=== PATIENT | female | born 1930 | race Caucasian/White ===

== ENCOUNTER 2017-08-22 18:38 | Inpatient (IN) | payer OTHER ==
[~2017-08-22] VITALS: Ht 154.9 cm; Wt 53.0 kg
[~2017-08-22 18:38] MED LIST: BIAXIN500 MG PO; NEURONTIN300 MG PO; PERCOCET 5/31 TABLET PO; ZOFRAN4 MG PO; ZYRTEC10 M3 PO
[2017-08-22 19:14] LABS: ADD MIUA? YES; BILIRUBIN NEGATIVE; BLOOD LARGE; COLOR YELLOW ((YELLOW)); GLUCOSE (STRIP) NEGATIVE; KETONES 5; LEUKOCYTES LARGE; NITRITE POSITIVE; PROTEIN (STRIP) 30; SPECIFIC GRAVITY 1.012 (1.000-1.030); UROBILINOGEN 0.2 MG/DL (0.2-1.0)
[2017-08-22 19:20] LABS: HEMATOCRIT 37.8 % (36.0-46.0); MCH 29.9 PG (29.0-34.0); MCHC 35.2 G/DL (30.0-36.0); MCV 84.9 FL (83-99); MEAN PLAT.VOLUME 8.6 uM^3 (9.5-12.4); PLATELET COUNT 511 K/uL (156-360); RBC DIS.WIDTH-CV 13.2 % (11.8-14.6); RBC DIS.WIDTH-SD 41.4 % (39-53); RED BLOOD COUNT 4.45 M/uL (3.80-5.20)
[2017-08-22 19:31] LABS: CHLORIDE 94 mEq/L (99-109); POTASSIUM 3.6 mEq/L (3.7-5.4); SODIUM 126 mEq/L (136-147)
[2017-08-22 19:32] LABS: GLUCOSE 123 mg/dL (70-99)
[2017-08-22 19:34] LABS: ANION GAP 10 MEQ/L (2-14)
[2017-08-22 19:36] LABS: GFR ESTIMATE (CALCULATED) > 59 mL/min/
[2017-08-22 19:37] LABS: UREA NITROGEN (BUN) 7 mg/dL (9-23)
[2017-08-22 19:40] LABS: BACTERIA RARE /HPF; EPITHELIAL CELLS RARE /HPF; HYALINE CASTS 0-5 /LPF; MUCUS TRACE /LPF; RED BLOOD CELLS TNTC /HPF (0-5); UCUL ADDED? YES; WHITE BLOOD CELLS TNTC /HPF (0-5)
[2017-08-22] MEDS ORDERED: PROMETHAZINE HC25 M1 PO (22:37)
[2017-08-22] MEDS ORDERED: ZYRTEC10 M2 PO (22:37)
[2017-08-22] MEDS ORDERED: DITROPAN XL5 MG PO (22:38)
[2017-08-22] MEDS ORDERED: MYSOLINE50 MG PO (22:38)
[2017-08-22] MEDS ORDERED: XANAX0.5 MG PO (22:38)
[2017-08-22] MEDS ORDERED: RESTORIL7.5 MG PO (22:39)
[2017-08-22] MEDS ORDERED: ASPIR 8181 M1 PO (22:40)
[2017-08-22] MEDS ORDERED: VITAMIN D32000 UNI1 PO (22:40)
[2017-08-22] MEDS ORDERED: PRILOSEC10 MG PO (22:40)
[2017-08-22] MEDS ORDERED: NORCO 5/3251 TABLET PO (22:40)
[2017-08-23] VITALS (7 sets, daily range): BP systolic 144–171; BP diastolic 74–85
[2017-08-23] MEDS ORDERED: TEMAZEPAM30 MG PO (01:16)
[2017-08-23] MEDS ORDERED: ALPRAZOLAM0.25 M2 PO (01:17)
[2017-08-23] MEDS ORDERED: OMEPRAZOLE40 M1 PO (01:19)
[2017-08-23] MEDS ORDERED: DITROPAN5 MG PO (01:20)
[2017-08-23] MEDS ORDERED: PRIMIDONE50 MG PO (01:21)
[2017-08-23 08:41] LABS: HEMATOCRIT 37.9 % (36.0-46.0); MCH 29.9 PG (29.0-34.0); MCHC 34.6 G/DL (30.0-36.0); MCV 86.5 FL (83-99); MEAN PLAT.VOLUME 8.7 uM^3 (9.5-12.4); PLATELET COUNT 475 K/uL (156-360); RBC DIS.WIDTH-CV 13.6 % (11.8-14.6); RBC DIS.WIDTH-SD 43.1 % (39-53); RED BLOOD COUNT 4.38 M/uL (3.80-5.20); WHITE BLOOD COUNT 8.4 K/uL (4.1-10.2)
[2017-08-23 09:02] LABS: ANION GAP 9 MEQ/L (2-14); CHLORIDE 96 MEQ/L (99-109); GFR ESTIMATE (CALCULATED) > 59 mL/min/; GLUCOSE 100 mg/dL (70-99); POTASSIUM 3.6 MEQ/L (3.7-5.4); SAMPLE HEMOLYSIS CHECK 0; SAMPLE ICTERIC CHECK 0; SAMPLE LIPEMIA CHECK 0; SODIUM 132 MEQ/L (136-147); UREA NITROGEN (BUN) 5 mg/dL (9-23)
[2017-08-24 02:56] VITALS: BP 141/79
[2017-08-24 07:49] LABS: HEMATOCRIT 35.3 % (36.0-46.0); MCH 29.4 PG (29.0-34.0); MCV 86.5 FL (83-99); MEAN PLAT.VOLUME 8.8 uM^3 (9.5-12.4); PLATELET COUNT 427 K/uL (156-360); RBC DIS.WIDTH-CV 13.6 % (11.8-14.6); RBC DIS.WIDTH-SD 42.9 % (39-53); RED BLOOD COUNT 4.08 M/uL (3.80-5.20); WHITE BLOOD COUNT 5.9 K/uL (4.1-10.2)
[2017-08-24 08:11] LABS: ANION GAP 7 MEQ/L (2-14); CHLORIDE 100 MEQ/L (99-109); GFR ESTIMATE (CALCULATED) > 59 mL/min/; GLUCOSE 88 mg/dL (70-99); POTASSIUM 3.4 MEQ/L (3.7-5.4); SAMPLE HEMOLYSIS CHECK 0; SAMPLE ICTERIC CHECK 0; SAMPLE LIPEMIA CHECK 0; SODIUM 134 MEQ/L (136-147); UREA NITROGEN (BUN) 6 mg/dL (9-23)
[2017-08-24 08:15] VITALS: BP 120/62
[2017-08-24 11:36] VITALS: BP 146/70
[2017-08-24 16:13] VITALS: BP 132/85
[2017-08-24 20:26] VITALS: BP 187/80
[2017-08-24 23:40] VITALS: BP 168/72
[2017-08-25 04:04] VITALS: BP 162/73
[2017-08-25 07:39] VITALS: BP 168/79
[2017-08-25 08:41] VITALS: BP 166/80
[2017-08-25] MEDS ORDERED: LISINOPRIL2.5 MG PO (11:10)
== END 2017-08-25 12:02 | disposition home or self-care (01) | DRG 690 ==
LOC: EME 18:38 → 2EASTP 22:31 → EDOF 22:31 → ENRESERV 22:34 → CANRESERV 22:34 → ENRESERV 23:02 → 2EASTP 08-23 01:49
PROVIDERS: Family Medicine
DX: N39.0 Urinary tract infection, site not specified (principal); E78.5 Hyperlipidemia, unspecified; B96.5 Pseudomonas (aeruginosa) (mallei) (pseudomallei) as the cause of diseases classified elsewhere; E87.1 Hypo-osmolality and hyponatremia; E87.8 Other disorders of electrolyte and fluid balance, not elsewhere classified; F41.9 Anxiety disorder, unspecified; G25.0 Essential tremor; G47.00 Insomnia, unspecified; I10 Essential (primary) hypertension; J30.2 Other seasonal allergic rhinitis; K21.9 Gastro-esophageal reflux disease without esophagitis; M16.11 Unilateral primary osteoarthritis, right hip; Z96.652 Presence of left artificial knee joint; R31.9 Hematuria, unspecified; N39.3 Stress incontinence (female) (male)
CPT/HCPCS: 70450; 80048; 81003; 83605; 85027; 87040; 87077; 87086; 87186; 99281; 99285; J0696; J1650; J3480; J7030; J7050

== ENCOUNTER 2017-09-05 11:21 | Emergency (ER) | payer OTHER ==
[~2017-09-05] VITALS: Ht 154.9 cm; Wt 45.8 kg
[~2017-09-05 11:21] MED LIST changes: +ALPRAZOLAM0.25 M2 PO; +ASPIR 8181 M1 PO; +DITROPAN XL5 MG PO; +DITROPAN5 MG PO; +LISINOPRIL2.5 MG PO; +MYSOLINE50 MG PO; +NORCO 5/3251 TABLET PO; +OMEPRAZOLE40 M1 PO; +PRILOSEC10 MG PO; +PRIMIDONE50 MG PO; +PROMETHAZINE HC25 M1 PO; +RESTORIL7.5 MG PO; +TEMAZEPAM30 MG PO; +VITAMIN D32000 UNI1 PO; +XANAX0.5 MG PO; +ZYRTEC10 M2 PO
[2017-09-05 12:13] LABS: HEMATOCRIT 39.1 % (36.0-46.0); MCHC 34.3 G/DL (30.0-36.0); MCV 87.7 FL (83-99); MEAN PLAT.VOLUME 9.3 uM^3 (9.5-12.4); PLATELET COUNT 417 K/uL (156-360); RBC DIS.WIDTH-SD 45.6 % (39-53); RED BLOOD COUNT 4.46 M/uL (3.80-5.20); WHITE BLOOD COUNT 4.8 K/uL (4.1-10.2)
[2017-09-05 12:24] LABS: CHLORIDE 98 mEq/L (99-109); POTASSIUM 4.2 mEq/L (3.7-5.4); SODIUM 130 mEq/L (136-147)
[2017-09-05 12:25] LABS: GLUCOSE 105 mg/dL (70-99)
[2017-09-05 12:27] LABS: ANION GAP 6 MEQ/L (2-14)
[2017-09-05 12:29] LABS: GFR ESTIMATE (CALCULATED) > 59 mL/min/
[2017-09-05 12:30] LABS: UREA NITROGEN (BUN) 8 mg/dL (9-23)
[2017-09-05 14:12] LABS: ADD MIUA? YES; BILIRUBIN NEGATIVE; BLOOD MODERATE; COLOR YELLOW ((YELLOW)); GLUCOSE (STRIP) NEGATIVE; KETONES NEGATIVE; LEUKOCYTES NEGATIVE; NITRITE NEGATIVE; PROTEIN (STRIP) NEGATIVE; SPECIFIC GRAVITY 1.009 (1.000-1.030); UROBILINOGEN 0.2 MG/DL (0.2-1.0)
[2017-09-05 14:26] LABS: BACTERIA NONE SEEN /HPF; EPITHELIAL CELLS RARE /HPF; MUCUS TRACE /LPF; UCUL ADDED? NO; WHITE BLOOD CELLS 0-5 /HPF (0-5)
[2017-09-05 16:08] VITALS: BP 188/103
== END 2017-09-05 16:10 | disposition home or self-care (01) ==
LOC: EME 11:21
DX: S06.0X0A Concussion without loss of consciousness, initial encounter (principal); R42 Dizziness and giddiness; I10 Essential (primary) hypertension; W19.XXXA Unspecified fall, initial encounter; E78.5 Hyperlipidemia, unspecified; F41.9 Anxiety disorder, unspecified; Z96.652 Presence of left artificial knee joint; Z87.440 Personal history of urinary (tract) infections
CPT/HCPCS: 70450; 71020; 80048; 81003; 85027; 93005; 99281; 99283

== ENCOUNTER 2017-12-08 11:40 | Emergency (ER) | payer OTHER ==
[~2017-12-08] VITALS: Ht 154.9 cm; Wt 44.9 kg
[2017-12-08 12:26] LABS: BASOPHIL (%) 0.7 % (0-1); BASOPHIL COUNT 0.1 K/uL (0-0.1); EOSINOPHIL (%) 0.4 % (0-5); EOSINOPHIL COUNT 0.1 K/uL (0-0.3); HEMATOCRIT 42.6 % (36.0-46.0); HEMOGLOBIN 14.9 G/DL (11.9-15.5); IMMATURE GRANULOCYTE (%) 0.5 % (0.0-0.7); LYMPHOCYTE (%) 9.7 % (15-42); LYMPHOCYTE COUNT 1.4 K/uL (1.0-2.8); MCH 29.5 PG (29.0-34.0); MCV 84.4 FL (83-99); MONOCYTE (%) 7.2 % (3-12); NEUTROPHIL (%) 81.5 % (45-76); NEUTROPHIL COUNT 11.5 K/uL (1.8-6.4); PLATELET COUNT 381 K/uL (156-360); RBC DIS.WIDTH-CV 13.2 % (11.8-14.6); RBC DIS.WIDTH-SD 40.9 % (39-53); RED BLOOD COUNT 5.05 M/uL (3.80-5.20); WHITE BLOOD COUNT 14.1 K/uL (4.1-10.2)
[2017-12-08 12:36] LABS: CHLORIDE 96 mEq/L (99-109); SODIUM 130 mEq/L (136-147)
[2017-12-08 12:38] LABS: GLUCOSE 89 mg/dL (70-99)
[2017-12-08 12:41] LABS: CREATININE 0.6 mg/dL (0.6-1.3); GFR ESTIMATE (CALCULATED) > 59 mL/min/
[2017-12-08 12:42] LABS: UREA NITROGEN (BUN) 9 mg/dL (9-23)
[2017-12-08 12:45] LABS: TROP-I INTERPRETATION NEGATIVE; TROPONIN-I < 0.01 ng/mL (0.0-0.30)
[2017-12-08 12:49] LABS: CK-MB 4.1 ng/mL (0.0-4.9)
[2017-12-08 14:10] LABS: APPEARANCE CLEAR ((CLEAR)); BILIRUBIN NEGATIVE; BLOOD MODERATE; COLOR STRAW ((YELLOW)); GLUCOSE (STRIP) NEGATIVE; KETONES 5; LEUKOCYTES NEGATIVE; NITRITE NEGATIVE; PROTEIN (STRIP) NEGATIVE; SPECIFIC GRAVITY 1.008 (1.000-1.030); UROBILINOGEN 0.2 MG/DL (0.2-1.0)
[2017-12-08 14:22] LABS: BACTERIA RARE /HPF; EPITHELIAL CELLS NONE SEEN /HPF; MUCUS TRACE /LPF; UCUL ADDED? NO; WHITE BLOOD CELLS 0-5 /HPF (0-5)
[2017-12-08 14:34] LABS: CKMB RELATIVE INDEX 2.5 (0.0-3.9); CREATINE KINASE 163 IU/L (1-294); TOTAL CK 163 IU/L (1-294)
[2017-12-08 14:55] VITALS: BP 130/76
== END 2017-12-08 15:18 | disposition home or self-care (01) ==
LOC: EME 11:40
PROVIDERS: Emergency Medicine
DX: T14.8XXA Other injury of unspecified body region, initial encounter (principal); M25.511 Pain in right shoulder; M25.551 Pain in right hip; R42 Dizziness and giddiness; W18.30XA Fall on same level, unspecified, initial encounter; Y92.002 Bathroom of unspecified non-institutional (private) residence as the place of occurrence of the external cause; E78.5 Hyperlipidemia, unspecified; F41.9 Anxiety disorder, unspecified; Z79.82 Long term (current) use of aspirin; Z96.652 Presence of left artificial knee joint
CPT/HCPCS: 70450; 71045; 73030; 73501; 73502; 80048; 81003; 82550; 82553; 84484; 85025; 93005; 99281; 99284

== ENCOUNTER 2018-04-13 16:43 | Inpatient (IN) | payer OTHER ==
[~2018-04-13] VITALS: Ht 157.5 cm; Wt 41.0 kg
[2018-04-13 18:03] LABS: BASOPHIL (%) 0.4 % (0-1); BASOPHIL COUNT 0.1 K/uL (0-0.1); EOSINOPHIL (%) 0 % (0-5); HEMATOCRIT 43.5 % (36.0-46.0); HEMOGLOBIN 15.3 G/DL (11.9-15.5); IMMATURE GRANULOCYTE (%) 0.5 % (0.0-0.7); LYMPHOCYTE (%) 2.7 % (15-42); LYMPHOCYTE COUNT 0.7 K/uL (1.0-2.8); MCH 30.2 PG (29.0-34.0); MCHC 35.2 G/DL (30.0-36.0); MONOCYTE (%) 4.7 % (3-12); MONOCYTE COUNT 1.1 K/uL (0-0.8); NEUTROPHIL (%) 91.7 % (45-76); NEUTROPHIL COUNT 22.2 K/uL (1.8-6.4); PLATELET COUNT 318 K/uL (156-360); RBC DIS.WIDTH-CV 13.3 % (11.8-14.6); RBC DIS.WIDTH-SD 41.8 % (39-53); RED BLOOD COUNT 5.06 M/uL (3.80-5.20); WHITE BLOOD COUNT 24.2 K/uL (4.1-10.2)
[2018-04-13 18:15] LABS: CHLORIDE 97 mEq/L (99-109); POTASSIUM 4.2 mEq/L (3.7-5.4); SODIUM 129 mEq/L (136-147)
[2018-04-13 18:17] LABS: GLUCOSE 154 mg/dL (70-99); TOTAL PROTEIN 6.2 g/dL (6.4-8.3)
[2018-04-13 18:19] LABS: TOTAL BILIRUBIN 0.7 mg/dL (0.0-1.0)
[2018-04-13 18:20] LABS: ALKALINE PHOSPHATASE 94 IU/L (3-129)
[2018-04-13 18:21] LABS: CREATININE 1.1 mg/dL (0.6-1.3); GFR ESTIMATE (CALCULATED) 50 mL/min/
[2018-04-13 18:22] LABS: AST (GOT) 25 IU/L (2-34); UREA NITROGEN (BUN) 25 mg/dL (9-23)
[2018-04-13 18:23] LABS: ALT (GPT) 16 IU/L (3-49)
[2018-04-13 18:24] LABS: LIPASE 32 U/L (1.0-51.0)
[2018-04-13] MEDS ORDERED: VITAMIN D32000 UNI1 PO (22:06)
[2018-04-13 22:41] LABS: APPEARANCE CLEAR ((CLEAR)); BILIRUBIN NEGATIVE; BLOOD MODERATE; COLOR YELLOW ((YELLOW)); GLUCOSE (STRIP) NEGATIVE; KETONES 5; LEUKOCYTES NEGATIVE; NITRITE NEGATIVE; PROTEIN (STRIP) NEGATIVE; SPECIFIC GRAVITY 1.041 (1.000-1.030); UROBILINOGEN 0.2 MG/DL (0.2-1.0)
[2018-04-13 22:48] LABS: BACTERIA NONE SEEN /HPF; EPITHELIAL CELLS RARE /HPF; MUCUS TRACE /LPF; RED BLOOD CELLS 0-5 /HPF (0-5); UCUL ADDED? NO; WHITE BLOOD CELLS 0-5 /HPF (0-5)
[2018-04-13 22:59] VITALS: BP 138/63
[2018-04-14 03:44] VITALS: BP 130/90
[2018-04-14 07:09] VITALS: BP 109/58
[2018-04-14 11:26] VITALS: BP 99/5
[2018-04-14 15:22] LABS: CHLORIDE 99 MEQ/L (99-109); GLUCOSE 137 mg/dL (70-99); POTASSIUM 3.6 MEQ/L (3.7-5.4); SODIUM 129 MEQ/L (136-147); UREA NITROGEN (BUN) 15 mg/dL (9-23)
[2018-04-14 15:23] LABS: CREATININE 0.6 MG/DL (0.6-1.3); GFR ESTIMATE (CALCULATED) > 59 mL/min/
[2018-04-14 15:50] VITALS: BP 111/83
[2018-04-14 20:06] VITALS: BP 119/59
[2018-04-14 23:49] VITALS: BP 115/52
[2018-04-15 03:58] VITALS: BP 116/54
[2018-04-15 06:31] LABS: BASOPHIL (%) 0.3 % (0-1); EOSINOPHIL (%) 0.6 % (0-5); EOSINOPHIL COUNT 0.1 K/uL (0-0.3); HEMATOCRIT 32.7 % (36.0-46.0); IMMATURE GRANULOCYTE (%) 0.6 % (0.0-0.7); LYMPHOCYTE (%) 6.9 % (15-42); MCH 29.6 PG (29.0-34.0); MCHC 34.6 G/DL (30.0-36.0); MCV 85.6 FL (83-99); MONOCYTE (%) 6.5 % (3-12); MONOCYTE COUNT 0.9 K/uL (0-0.8); NEUTROPHIL (%) 85.1 % (45-76); NEUTROPHIL COUNT 12.2 K/uL (1.8-6.4); PLATELET COUNT 253 K/uL (156-360); RBC DIS.WIDTH-CV 13.9 % (11.8-14.6); RBC DIS.WIDTH-SD 43.1 % (39-53); WHITE BLOOD COUNT 14.4 K/uL (4.1-10.2)
[2018-04-15 06:42] LABS: HEMOGLOBIN 11.3 G/DL (11.9-15.5); RED BLOOD COUNT 3.82 M/uL (3.80-5.20)
[2018-04-15 06:48] LABS: CHLORIDE 101 MEQ/L (99-109); CREATININE 0.4 MG/DL (0.6-1.3); GFR ESTIMATE (CALCULATED) > 59 mL/min/; POTASSIUM 3.4 MEQ/L (3.7-5.4); SODIUM 131 MEQ/L (136-147); UREA NITROGEN (BUN) 10 mg/dL (9-23)
[2018-04-15 06:52] LABS: GLUCOSE 92 mg/dL (70-99)
[2018-04-15 07:30] VITALS: BP 145/69
[2018-04-15 11:17] VITALS: BP 137/60
[2018-04-15 15:14] VITALS: BP 118/91
[2018-04-15 19:58] VITALS: BP 156/73
[2018-04-15 23:52] VITALS: BP 167/75
[2018-04-16 03:05] VITALS: BP 174/72
[2018-04-16 03:15] LABS: STOOL OCCULT BLD 1ST SPECIMEN POSITIVE; STOOL OCCULT BLD 2ND SPECIMEN POSITIVE; STOOL OCCULT BLD 3RD SPECIMEN POSITIVE
[2018-04-16 07:38] LABS: C DIFF TOXIN NEGATIVE (NEGATIVE)
[2018-04-16 07:52] VITALS: BP 122/77
[2018-04-16 07:57] LABS: HEMOGLOBIN 12.4 G/DL (11.9-15.5); MCH 29.5 PG (29.0-34.0); MCHC 34.4 G/DL (30.0-36.0); MCV 85.7 FL (83-99); PLATELET COUNT 264 K/uL (156-360); RBC DIS.WIDTH-CV 13.7 % (11.8-14.6); RBC DIS.WIDTH-SD 42.9 % (39-53); WHITE BLOOD COUNT 10.5 K/uL (4.1-10.2)
[2018-04-16 11:41] VITALS: BP 148/74
[2018-04-16 15:00] VITALS: BP 173/75
[2018-04-16 18:56] VITALS: BP 143/65
[2018-04-16 23:38] VITALS: BP 148/71
[2018-04-17 03:21] VITALS: BP 159/72
[2018-04-17 07:10] LABS: HEMATOCRIT 36.1 % (36.0-46.0); HEMOGLOBIN 12.5 G/DL (11.9-15.5); MCH 29.4 PG (29.0-34.0); MCHC 34.6 G/DL (30.0-36.0); MCV 84.9 FL (83-99); PLATELET COUNT 295 K/uL (156-360); RBC DIS.WIDTH-CV 13.6 % (11.8-14.6); RBC DIS.WIDTH-SD 42.2 % (39-53); RED BLOOD COUNT 4.25 M/uL (3.80-5.20)
[2018-04-17 07:39] LABS: CHLORIDE 96 MEQ/L (99-109); CREATININE 0.4 MG/DL (0.6-1.3); GFR ESTIMATE (CALCULATED) > 59 mL/min/; GLUCOSE 89 mg/dL (70-99); POTASSIUM 2.9 MEQ/L (3.7-5.4); SODIUM 133 MEQ/L (136-147); UREA NITROGEN (BUN) 5 mg/dL (9-23)
[2018-04-17 08:19] VITALS: BP 146/90
[2018-04-17 12:02] VITALS: BP 140/89
== END 2018-04-17 16:04 | disposition home or self-care (01) | DRG 372 ==
LOC: EME 16:43 → EDOF 21:15 → 2EAST 21:15 → ENRESERV 21:17 → 2EAST 22:40
PROVIDERS: Emergency Medicine; Family Medicine; Internal Medicine Gastroenterology
DX: A04.9 Bacterial intestinal infection, unspecified (principal); E87.1 Hypo-osmolality and hyponatremia; E86.0 Dehydration; K92.1 Melena; E87.6 Hypokalemia; Z68.1 Body mass index [BMI] 19.9 or less, adult; F41.9 Anxiety disorder, unspecified; R64 Cachexia; K52.9 Noninfective gastroenteritis and colitis, unspecified; G25.0 Essential tremor; I10 Essential (primary) hypertension; K21.9 Gastro-esophageal reflux disease without esophagitis; N39.3 Stress incontinence (female) (male); Z96.652 Presence of left artificial knee joint; M19.90 Unspecified osteoarthritis, unspecified site; Z90.710 Acquired absence of both cervix and uterus
CPT/HCPCS: 74177; 80048; 80053; 81003; 82272; 82948; 83605; 83690; 85025; 85027; 87040; 87493; 87506; 93005; 99281; 99285; J0744; J1956; J2405; J3010; J7030; S0030